=== PATIENT | female | born 1955 | race Caucasian/White ===

== ENCOUNTER 2016-04-01 13:11 | Emergency (ER) | payer OTHER ==
[2016-04-01 13:21] VITALS: BP 116/42
[2016-04-01 13:31] LABS: MANUAL DIFF NEEDED? NO
[2016-04-01 13:34] LABS: BASO% 0.8 % (0.0-0.8); EOS# 0.26 X1000 (0.0-0.7); EOS% 5.2 % (0.0-10.0); HEMATOCRIT 43.1 % (37.0-47.0); MCH 32.6 PG (27-31); MCHC 32.5 g/dL (33-37); MCV 100.2 FL (81-99); MONO# 0.46 X1000 (0.11-0.59); MONO% 9.2 % (1.7-9.3); NEUT% 54.8 % (42.2-75.2); PLT 273 X1000 (130-400)
[2016-04-01 13:37] LABS: URINE MICRO REVIEW NEEDED? NO; URINE SOURCE CLEAN CATCH
[2016-04-01 13:41] LABS: BILIRUBIN URINE NEGATIVE (NEGATIVE); BLOOD URINE NEGATIVE (NEGATIVE); COLOR STRAW; GLUCOSE URINE NEGATIVE (NEGATIVE); LEUKOCYTES URINE MODERATE (NEGATIVE); NITRITE URINE NEGATIVE (NEGATIVE); PROTEIN URINE NEGATIVE (NEGATIVE); SP GRAVITY URINE 1.005; TURBIDITY URINE CLEAR (CLEAR); UR EPITHELIAL CELLS <10 /HPF (<10); URINE BACTERIA NEGATIVE /HPF; URINE CULTURE NEEDED? YES; URINE RBC <10 /HPF (<10); URINE WBC <10 /HPF (<10); UROBILINOGEN URINE NORMAL (NORMAL)
[2016-04-01 13:54] LABS: AGAP 12; ALKALINE PHOSPHATASE 154 U/L (32-104); AMYLASE 66 U/L (20-200); BUN 10 mg/dL (8-22); CALCIUM 8.7 mg/dL (8.8-10.2); CHLORIDE 101 mmol/L (98-107); COSMO 278; GOT 18 U/L (10-30); GPT 18 U/L (10-36); LIPASE 40 U/L (13-60); POTASSIUM 4.2 mmol/L (3.5-5.1); SODIUM 139 mmol/L (136-145); TCO2 26 mmol/L (25-35); TOTAL BILIRUBIN 0.22 mg/dL (0.20-1.00); TOTAL PROTEIN 6.3 g/dL (6.3-8.3)
[2016-04-01] MEDS ORDERED: PHENERGAN IM ONE (15:31)
--- NOTE | 2016-04-01 15:40 | PROVIDER DOCUMENTATION ---
HPI-Abdominal Pain/GI Problem - General Chief Complaint: N/V/D Stated Complaint: N/V/D (POSS CDIFF) Time Seen by Provider: 04/01/16 15:21 Source: patient Allergies/Adverse Reactions: Patient Allergies Allergy/AdvReac Type Severity Reaction Status Date / Time codeine [Codeine] Allergy Severe RASH Verified 04/01/16 15:52 Penicillins Allergy Severe NAUSEA/VOMI Verified 04/01/16 15:52 TING diclofenac Allergy RASH Verified 04/01/16 15:52 fluconazole [From Diflucan] Allergy RASH Verified 04/01/16 15:52 tramadol Allergy RASH Verified 04/01/16 15:52 Home Medications: Home Medication List Medication Instructions Recorded Confirmed Last Taken Type Docusate Sodium [Colace] 200 mg PO HS PRN 12/25/11 04/01/16 2 Days Ago History Vilazodone Hydrochloride [Viibryd] 40 mg PO DAILY 12/25/11 04/01/16 04/01/16 07: 30 History Pantoprazole [Protonix] 40 mg PO DAILY@0700 04/16/12 04/01/16 04/01/16 07:30 History Ferrous Sulfate 325 mg PO TID 12/16/14 04/01/16 04/01/16 07:30 History Perphenazine 12 mg PO QHS 12/16/14 04/01/16 03/31/16 21:00 History Perphenazine [Trilafon] 8 mg PO QAM 12/16/14 04/01/16 04/01/16 07:00 History Phenytoin Sodium Extended 150 mg PO DAILY 12/16/14 04/01/16 04/01/16 07:00 History [Dilantin] Phenytoin Sodium Extended 200 mg PO QHS 12/16/14 04/01/16 03/31/16 21:00 History [Dilantin] Trazodone [Desyrel] 100 mg PO QHS 12/16/14 04/01/16 03/31/16 21:00 History Ondansetron Odt [Zofran 4 mg Odt] 4 mg PO Q6H PRN PRN #20 tablet 03/28/1604/01/16 11:00 Rx Dicyclomine [Bentyl] 10 mg PO 4XDAY #30 capsule 04/01/16 Unknown Rx Gabapentin 100 mg PO TID 04/01/16 04/01/16 04/01/16 07:30 History Lactobacillus Rhamnosus GG 1 each PO BID #30 capsule 04/01/16 Unknown Rx [Culturelle] Promethazine [Phenergan] 25 mg [place] Q6H PRN PRN #20 supp 04/01/16 Unknown Rx - History of Present Illness-ABD Nature of Presenting Problems: 61 y/o WF c/o abd. pain, N/V/D x 2 weeks. Pt states was diagnosed by her PCP with C. Diff 2 weeks ago and was seen at [facility] 3 days ago. Reports that vomiting started today. States diarrhea started last night. Reports RLQ pain x 2 weeks. No new sxs reported. Zofran ODT did not help her vomiting. Review of Systems - Adult - REVIEW OF SYSTEMS - ADULT Constitutional: reports: no symptoms reported. denies: chills, fever Eyes: reports: no symptoms reported. denies: blurred vision, double vision Ears, Nose, Mouth & Throat: reports: no symptoms reported. denies: ear pain, nose pain Cardiovascular: reports: no symptoms reported. denies: chest pain, palpitations Respiratory: reports: no symptoms reported. denies: dyspnea on exertion, shortness of breath Gastrointestinal: reports: see HPI, abdominal pain, diarrhea, nausea, vomiting. denies: constipation, rectal bleeding Genitourinary: reports: no symptoms reported. denies: dysuria, frequency Musculoskeletal: reports: no symptoms reported. denies: joint pain, joint swelling Integumentary: reports: no symptoms reported. denies: nail changes, rash Neurological: reports: no symptoms reported. denies: numbness, paresthesia Psychiatric: reports: no symptoms reported Endocrine: reports: no symptoms reported. denies: cold intolerance, heat intolerance Hematologic/Lymphatic: reports: no symptoms reported. denies: easy bruising, prolonged bleeding Allergic/Immunologic: reports: no symptoms reported All Other Systems: Reviewed and Negative Past History - Adult - PAST MEDICAL HISTORY-ADULT Review of Records: reports: Nursing Assessment Review, Medications Reviewed Major Childhood Illnesses: reports: denies history Cardiovascular: reports: HTN Respiratory: reports: denies history Gastrointestinal: reports: GERD Obstetrical/Gynecological: reports: denies history Genitourinary: reports: denies history Musculoskeletal: reports: denies history Neurological: reports: Seizures/Epilepsy Endocrine/Immune: reports: Diabetes Other Conditions: reports: denies history - PRIOR SURGERIES/PROCEDURES Surgical/Procedure History: reports: hysterectomy - FAMILY HISTORY Family History: reviewed, not pertinent - SOCIAL HISTORY Smoking: quit greater than 1 year Living Situation: family Physical Exam-General - PHYSICAL EXAM-ADULT Initial Vital Signs Reviewed: Yes - CONSTITUTIONAL General Appearance: alert, mild distress - EYES Eyes: pink conjunctivae - HEAD, EARS, NOSE, MOUTH & THROAT HENMT: normocephalic/atraumatic, moist mucous membranes - NECK Neck: normal inspection - RESPIRATORY Respiratory: lungs clear, normal breath sounds. negative: crackles, rales, rhonchi, stridor, wheezing - CARDIOVASCULAR Cardiovascular: regular rate, rhythm. negative: bradycardia, tachycardia - GASTROINTESTINAL (ABDOMEN) Abdominal Exam: normal bowel sounds, soft, tenderness (generalized). negative: distended, guarding, rigid, rebound, McBurney's point tenderness, Gomez's sign - MUSCULOSKELETAL Back Exam: no CVA tenderness Extremity: normal gait - SKIN Integumentary: normal color, normal turgor, warm/dry - NEUROLOGIC Neurologic: negative: aphasia - PSYCHIATRIC Psych/Mental Status: normal mood/affect, normal thought content, normal thought process, oriented x 3 Progress - XRAY 1 XRAY Study: Chest, Abdomen Impression: See EMR Report (nonspecific abdomen. lingular atelectasis. -per Dr. Maguire) Departure - Departure Time of Disposition Order: 16:05 DIAGNOSIS: Atelectasis Urinary tract infection Qualifiers: Urinary tract infection type: acute cystitis Hematuria presence: without hematuria Qualified Code(s): N30.00 - Acute cystitis without hematuria Vomiting Qualifiers: Vomiting type: unspecified Vomiting Intractability: non-intractable Nausea presence: unspecified Qualified Code(s): R11.10 - Vomiting, unspecified Disposition: HOME 01 Certified Medical Emergency: Emergent Condition: Stable Additional Instructions: Follow up with specialist for further management. Take medications as directed. Drink plenty of water. ED Follow Up Instructions: You have been treated by a care provider in the Emergency Department. These instructions are being provided to you so you can have an understanding of how to care for yourself upon discharge. Upon discharge from the Emergency Department, you are responsible for making arrangements for follow-up care by a physician of your choice. Take all prescribed medications as directed. Return to the Emergency Department immediately for any new or worsening symptoms. You may call the Physician Referral phone number at [phone] to obtain a list of Physicians who are taking new patients. Prescriptions: Dicyclomine [Bentyl] 10 mg PO 4XDAY #30 capsule Lactobacillus Rhamnosus GG [Culturelle] 1 each PO BID #30 capsule Promethazine [Phenergan] 25 mg AZ Q6H PRN PRN #20 supp PRN Reason: Nausea Referrals: Adele Frye [Primary Care Provider] - Roshan Matta MD [STAFF PHYSICIAN] - Attestation - Physician/ BHAVNA Attestation Patient care was provided by Advanced Practice Provider:: Yes Advanced Practice Provider:: Frida Conte Advanced Practice Provider documentation review:: The Mid-level provider documentation, treatment plan and medical decision making was reviewed by the physician who agrees with all treatment and medical decision making by the P.
--- NOTE | 2016-04-01 15:56 | Diag Imaging Result Document ---
PROCEDURE NAME: FLAT/UPRIGHT ABD/1 VIEW CHEST - 04/01/2016 FLAT AND UPRIGHT ABDOMEN: FINDINGS: There is no evidence of bowel obstruction, organomegaly, or mass. Stomach is not distended. There are surgical clips in the right upper quadrant. There is less stool in the colon than on 04/18/2012. IMPRESSION: Nonspecific abdomen. PA CHEST: FINDINGS: There is atelectasis in the lingula, which was not present on 03/06/2012. The inspiration is otherwise less optimal than the previous study. IMPRESSION: Lingular atelectasis.
[2016-04-01] MEDS ORDERED: NORCO-7.5 PO ONE (16:11)
== END 2016-04-01 16:27 | disposition home or self-care (01) ==
LOC: ED 13:11
DX: J98.11 Atelectasis (principal); N30.00 Acute cystitis without hematuria; R11.2 Nausea with vomiting, unspecified; R10.84 Generalized abdominal pain; R19.7 Diarrhea, unspecified; I10 Essential (primary) hypertension; K21.9 Gastro-esophageal reflux disease without esophagitis; E11.9 Type 2 diabetes mellitus without complications; Z79.899 Other long term (current) drug therapy; R56.9 Unspecified convulsions; Z87.891 Personal history of nicotine dependence
CPT/HCPCS: 74022; 80053; 81001; 82150; 83690; 85025; 87088; J2550

== ENCOUNTER 2016-04-05 17:03 | Emergency (ER) | payer OTHER ==
--- NOTE | 2016-04-05 17:35 | PROVIDER DOCUMENTATION ---
HPI-Musculoskeletal Pain/Inj - GENERAL Source: patient - HX OF PRESENT ILLNESS-MUSKULOSKELTAL Quality of Pain: reports: aching Severity in ED: mild Onset/Duration: this morning Timing: still present, intermittent Modifying Factors: improves with: nothing Any recent injury?: Yes (fall) Locality of Occurance: Home Similar Symptoms Previously?: Yes Recently seen or treated by another doctor?: No - FALL INJURY Location of Pain/Injury: reports: lower extremity (R hip) Pain Radiation: reports: no radiation Reason for Fall: reports: tripped Symptoms prior to fall:: reports: none Loss of Consciousness: no loss of consciousness Injury Associated Symptoms: reports: denies symptoms - HIP/PELVIS PAIN/INJURY Hip Pain Location: reports: hip (R) Pain Radiation: reports: no radiation Context / Method of Injury: reports: fall Associated Symptoms: reports: weakness in legs/feet (R leg). denies: loss of bladder control, loss of bowel control, lower back pain, muscle spasms, numbness in legs/feet, sensory/motor loss, tingling in legs/feet <Rody Weber - Last Filed: 04/05/16 17:30> <Maia Diaz - Last Filed: 04/05/16 18:33> - GENERAL Chief Complaint: Hip Injury Stated Complaint: FALL Time Seen by Provider: 04/05/16 17:23 - HX OF PRESENT ILLNESS-MUSKULOSKELTAL Nature of Presenting Problem: Pt is 61 y/o F presents to the ED with R hip pain. Pt states tripped and fell and landed on R hip. Pt states taking an aspirin with no relief. Pt denies hitting her head. Pt denies LOC. Pt states falling this am at 0800. Pt states pain with walking. (Rody Weber) Review of Systems - Adult - REVIEW OF SYSTEMS - ADULT Constitutional: denies: chills, fever Eyes: denies: blurred vision, double vision Ears, Nose, Mouth & Throat: denies: ear pain, nose pain, throat pain Cardiovascular: denies: chest pain, heart murmur, irregular heart rate Respiratory: denies: cough, shortness of breath, wheezing Gastrointestinal: denies: abdominal pain, diarrhea, nausea, vomiting Genitourinary: denies: dysuria, hematuria Musculoskeletal: reports: other (R hip pain). denies: bone pain, joint pain, neck pain Integumentary: denies: hives, itching Neurological: denies: dizziness/vertigo, headache/migraines Psychiatric: reports: no symptoms reported Endocrine: reports: no symptoms reported Hematologic/Lymphatic: reports: no symptoms reported Allergic/Immunologic: reports: no symptoms reported All Other Systems: Reviewed and Negative <Jeanette Weberomi - Last Filed: 04/05/16 17:30> - REVIEW OF SYSTEMS - ADULT Constitutional: denies: chills, fever Musculoskeletal: reports: joint pain. denies: joint swelling <Maia Diaz Andree - Last Filed: 04/05/16 18:33> Past History - Adult - PAST MEDICAL HISTORY-ADULT Review of Records: reports: Nursing Assessment Review, Medications Reviewed, Social history reviewed & non-contributory. Major Childhood Illnesses: reports: denies history Cardiovascular: reports: HTN Respiratory: reports: denies history Gastrointestinal: reports: GERD Obstetrical/Gynecological: reports: denies history Genitourinary: reports: denies history Musculoskeletal: reports: arthritis Neurological: reports: Seizures/Epilepsy Psychiatric: reports: depression Endocrine/Immune: reports: Diabetes Diabetes Type: Type 2 Other Conditions: reports: denies history - PRIOR SURGERIES/PROCEDURES Surgical/Procedure History: reports: cholecystectomy, hysterectomy - IMMUNIZATION STATUS Childhood Immunizations: See Nurse Assessment Flu Vaccine: See Nurse Assessment - FAMILY HISTORY Family History: reviewed, not pertinent - SOCIAL HISTORY Smoking: denies Substance Use: denies Living Situation: family <Rody Weber - Last Filed: 04/05/16 17:30> Physical Exam-Injury Related - Physical Exam-Injury Related Initial Vital Signs Reviewed: Yes General Appearance: appears well, alert, no apparent distress Eyes: PERRL/EOMI, pink conjunctivae, fundi clear, no AV nicking Head, Ears, Nose, Mouth & Throat: normocephalic/atraumatic, moist mucous membranes, normal ENT inspection, TMs normal, pharynx normal Neck: non-tender, full range of motion, supple, normal inspection Respiratory: chest non-tender, lungs clear, normal breath sounds, no pleuratic chest pain, no respiratory distress, no accessory muscle use Cardiovascular: normal peripheral pulses, regular rate, rhythm, no edema, no gallop, no JVD, no murmur Peripheral Pulses: radial (R): 2+, radial (L): 2+, dorsalis-pedis (R): 2+, dorsalis-pedis (L): 2+ Abdominal Exam: normal bowel sounds, non tender, soft, no organomegaly, no pulsatile mass Lymphatic: no adenopathy Back Exam: normal inspection, no CVA tenderness, no vertebral tenderness Extremity: normal range of motion, no pedal edema, no calf tenderness, tenderness (R hip) Integumentary: normal color, warm/dry Neurologic: intermediate project manager II-XII nml as tested, grossly normal, no motor/sensory deficits Psych/Mental Status: normal mood/affect, normal thought content, normal thought process, oriented x 3 <Rody Weber - Last Filed: 04/05/16 17:30> - Physical Exam-Injury Related Initial Vital Signs Reviewed: Yes General Appearance: appears well, alert, no apparent distress Eyes: PERRL/EOMI, pink conjunctivae Head, Ears, Nose, Mouth & Throat: normocephalic/atraumatic, moist mucous membranes, normal ENT inspection, TMs normal, pharynx normal Neck: non-tender, full range of motion, supple Respiratory: lungs clear, normal breath sounds Cardiovascular: normal peripheral pulses, regular rate, rhythm Peripheral Pulses: dorsalis-pedis (L): 2+ Abdominal Exam: non tender, soft Back Exam: normal inspection, no CVA tenderness, no vertebral tenderness Extremity: normal range of motion, normal inspection, normal capillary refill, tenderness (right bursa). negative: no pedal edema, deformity, erythema, swelling Integumentary: normal color, warm/dry. negative: ecchymosis, erythema, swelling <Maia Diaz - Last Filed: 04/05/16 18:33> Progress <Rody Weber - Last Filed: 04/05/16 17:30> - XRAY 1 XRAY: Left XRAY Study: Hip Impression: Normal XRAY Interpretation: neg <Maia Diaz - Last Filed: 04/05/16 18:33> - PLAN OF CARE/RESULTS Progress/Plan/Lab Results: Orders Category Date Time Status XRAY PELVIS W/HIP 2-3VW RT [RAD] Stat Exams 04/05/16 17:31 Ordered Vital Signs - 24 hr 04/05/16 17:14 Temperature 97 F L Pulse Rate 82 Respiratory 20 Rate Blood Pressure 123/74 O2 Sat by Pulse 93 L Oximetry (Rody Weber) Discussed care, diagnosis and need for follow-up, patient verbalized understanding Orders Category Date Time Status XRAY PELVIS W/HIP 2-3VW RT [RAD] Stat Exams 04/05/16 17:31 Taken Dexamethasone [Decadron] Med 04/05/16 18:27 Discontinued 10 mg IM NOW ONE Dexamethasone [Decadron] Med 04/05/16 18:24 Discontinued 4 mg IM NOW ONE Last Vital Signs Temp 97 F L 04/05/16 17:14 Pulse 82 04/05/16 17:14 Resp 20 04/05/16 17:14 BP 123/74 04/05/16 17:14 Pulse Ox 93 L 04/05/16 17:14 Allergies codeine [Codeine] Allergy (Severe, Verified 04/05/16 17:18) RASH Penicillins Allergy (Severe, Verified 04/05/16 17:18) NAUSEA/VOMITING diclofenac Allergy (Verified 04/05/16 17:18) RASH fluconazole [From Diflucan] Allergy (Verified 04/05/16 17:18) RASH tramadol Allergy (Verified 04/05/16 17:18) RASH Orders 04/05/16 17:31 XRAY PELVIS W/HIP 2-3VW RT [RAD] Stat Vital Signs - 24 hr 04/05/16 17:14 Temperature 97 F L Pulse Rate 82 Respiratory 20 Rate Blood Pressure 123/74 O2 Sat by Pulse 93 L Oximetry (Maia Diaz) Departure <Rody Weber - Last Filed: 04/05/16 17:30> - Departure Time of Disposition Order: 18:24 Certified Medical Emergency: Emergent <Maia Diaz - Last Filed: 04/05/16 18:33> - Departure DIAGNOSIS: Contusion of right hip Qualifiers: Encounter type: initial encounter Qualified Code(s): S70.01XA - Contusion of right hip, initial encounter Disposition: HOME 01 Condition: Stable Additional Instructions: ED Follow Up Instructions: You have been treated by a care provider in the Emergency Department. These instructions are being provided to you so you can have an understanding of how to care for yourself upon discharge. Upon discharge from the Emergency Department, you are responsible for making arrangements for follow-up care by a physician of your choice. Take all prescribed medications as directed. Return to the Emergency Department immediately for any new or worsening symptoms. You may call the Physician Referral phone number at [phone] to obtain a list of Physicians who are taking new patients. Prescriptions: Hydrocodone/APAP 7.5 mg/325 mg [Sultan-7.5] 1 each PO Q6H PRN PRN #8 tablet PRN Reason: Pain Methocarbamol [Robaxin-750] 750 mg PO TID #30 tablet Referrals: Adele Frye [Primary Care Provider] - Attestation - Scribe Verification/Attestation Scribe:: Rody Weber Acting as Scribe for:: Maia Diaz Scribe documention review:: This chart was documented by a scribe and accurately reflects the service the provider performed and the decisions made by the provider. <Rody Weber - Last Filed: 04/05/16 17:30> Physician Attestation
[2016-04-05] MEDS ORDERED: DECADRON IM ONE ×2 (18:24→18:27)
[2016-04-05] MEDS ORDERED: NORCO-5 PO ONE (18:36)
[2016-04-05 18:52] VITALS: BP 124/80
--- NOTE | 2016-04-05 20:07 | Diag Imaging Result Document ---
PROCEDURE NAME: XRAY PELVIS W/HIP 2-3VW RT - 04/05/2016 PELVIS AND 2 VIEWS OF THE RIGHT HIP: COMPARISON: CT, 03/28/2016. FINDINGS: Bones are intact and normally aligned. Joint spaces and soft tissues are clear. IMPRESSION: Negative exam.
== END 2016-04-05 18:52 | disposition home or self-care (01) ==
LOC: P.ED 17:03
DX: S70.01XA Contusion of right hip, initial encounter (principal); M25.551 Pain in right hip; I10 Essential (primary) hypertension; K21.9 Gastro-esophageal reflux disease without esophagitis; M19.90 Unspecified osteoarthritis, unspecified site; F32.9 Major depressive disorder, single episode, unspecified; E13.9 Other specified diabetes mellitus without complications; W01.0XXA Fall on same level from slipping, tripping and stumbling without subsequent striking against object, initial encounter; Z79.899 Other long term (current) drug therapy
CPT/HCPCS: 96372

== ENCOUNTER 2016-04-15 11:21 | Emergency (ER) | payer OTHER ==
[2016-04-15] MEDS ORDERED: FLEXERIL PO ONE (12:56)
[2016-04-15] MEDS ORDERED: NORCO-7.5 PO ONE (12:56)
--- NOTE | 2016-04-15 13:51 | PROVIDER DOCUMENTATION ---
HPI-Musculoskeletal Pain/Inj - GENERAL Chief Complaint: Extremity Pain Stated Complaint: EXTREMITY PAIN Time Seen by Provider: 04/15/16 12:25 Source: patient, family - HX OF PRESENT ILLNESS-MUSKULOSKELTAL Nature of Presenting Problem: 61 year old WF presents with c/o right posterior upper leg pain. onset last night while laying in bed, pt reports it kept her awake all night. pt denies taking any otc meds for pain. pt reports a history of PE and is concerned about a blood clot. denies trauma, injury, infection. Review of Systems - Adult - REVIEW OF SYSTEMS - ADULT Constitutional: reports: no symptoms reported. denies: chills, fever, fatique Eyes: reports: no symptoms reported. denies: discharge, blurred vision, double vision Ears, Nose, Mouth & Throat: reports: no symptoms reported. denies: ear discharge, ear pain, nose pain, loose teeth, throat pain, throat swelling Cardiovascular: reports: no symptoms reported Respiratory: reports: no symptoms reported. denies: chronic cough, cough, shortness of breath, wheezing Gastrointestinal: reports: no symptoms reported. denies: abdominal pain, diarrhea, nausea, vomiting Genitourinary: reports: no symptoms reported. denies: dysuria, hematuria, urgency Musculoskeletal: reports: see HPI, muscle aches (right posterior thigh). denies : bone pain, back pain, frequent leg cramps, joint pain, joint swelling, muscle weakness, neck pain Integumentary: reports: no symptoms reported. denies: hives, itching, rash, skin sores/ulcer Neurological: reports: no symptoms reported. denies: ataxia, dizziness/vertigo , headache/migraines, numbness, paresthesia Psychiatric: reports: no symptoms reported Endocrine: reports: no symptoms reported Hematologic/Lymphatic: reports: see HPI, blood clots (PE) Allergic/Immunologic: reports: no symptoms reported All Other Systems: Reviewed and Negative Past History - Adult - PAST MEDICAL HISTORY-ADULT Review of Records: reports: Old Records Reviewed, Nursing Assessment Review, Medications Reviewed, Social history reviewed & non-contributory. Major Childhood Illnesses: reports: denies history Cardiovascular: reports: HTN Respiratory: reports: denies history Gastrointestinal: reports: GERD Obstetrical/Gynecological: reports: denies history Genitourinary: reports: denies history Musculoskeletal: reports: arthritis Neurological: reports: Seizures/Epilepsy Psychiatric: reports: depression Endocrine/Immune: reports: Diabetes Other Conditions: reports: denies history - PRIOR SURGERIES/PROCEDURES Surgical/Procedure History: reports: cholecystectomy, hysterectomy - IMMUNIZATION STATUS Childhood Immunizations: See Nurse Assessment Flu Vaccine: See Nurse Assessment - FAMILY HISTORY Family History: reviewed, not pertinent - SOCIAL HISTORY Smoking: quit greater than 1 year Substance Use: none/never Alcohol Use Frequency: never Physical Exam-Injury Related - Physical Exam-Injury Related Initial Vital Signs Reviewed: Yes General Appearance: appears well, alert, no apparent distress. negative: mild distress, moderate distress, severe distress Eyes: pink conjunctivae Head, Ears, Nose, Mouth & Throat: normocephalic/atraumatic, moist mucous membranes, normal ENT inspection Neck: non-tender, full range of motion, supple, normal inspection. negative: C- spine tenderness, decresed ROM, pain on movement, tender lateral, tender midline , vertebral point tenderness Respiratory: chest non-tender, lungs clear, normal breath sounds, no pleuratic chest pain, no respiratory distress, no accessory muscle use Cardiovascular: normal peripheral pulses, regular rate, rhythm, no edema, no gallop, no JVD, no murmur Chest/Breast: no tenderness Peripheral Pulses: radial (R): 3+, radial (L): 3+, dorsalis-pedis (R): 3+, dorsalis-pedis (L): 3+ Abdominal Exam: normal bowel sounds, non tender, soft Female Genitalia/Pelvic Exam: deferred Rectal Exam: deferred Hemoccult Exam: deferred Lymphatic: no adenopathy Back Exam: normal inspection, no CVA tenderness, no vertebral tenderness. negative: CVA tenderness, decreased range of motion, swelling, vertebral tenderness Extremity: normal inspection, no pedal edema, no calf tenderness, normal capillary refill, pelvis stable, tenderness (right mid gastrocnemius tenderness with palpatation. no swelling, erythema, s/s or injury identified.). negative: normal range of motion, non-tender, normal gait (pt has been limping since pain initiation), abnormal NV exam, calf tenderness, deformity, erythema, inflammation, joint effusion, pulse deficit, pedal edema, slow capillary refill , swelling Integumentary: normal color, warm/dry Neurologic: grossly normal, no motor/sensory deficits. negative: focal weakness , motor weakness, sensory deficit Psych/Mental Status: normal mood/affect, normal thought content, normal thought process, oriented x 3 - Glascow Coma Score Best Eye Response ([place]): (4) open spontaneously Best Verbal Response ([place]): (5) oriented Best Motor Response ([place]): (6) obeys commands Lynda Total: 15 Progress - PLAN OF CARE/RESULTS Progress/Plan/Lab Results: Laboratory Tests 04/15/16 11:50 D-Dimer 0.40 Orders Category Date Time Status D-DIMER PL [COAG] Stat Lab 04/15/16 11:50 Completed Cyclobenzaprine [Flexeril] Med 04/15/16 12:56 Discontinued 10 mg PO NOW ONE Hydrocodone/APAP 7.5 mg/325 mg [[place]-7.5] Med 04/15/16 12:56 Discontinued 1 each PO NOW ONE - REASSESSMENT Reassessment #1 Time Reassessed: 13:46 Status: improving (pt reports pain resolved, up and ambulatory around room.) Departure - Departure Time of Disposition Order: 13:48 DIAGNOSIS: Strain of right gastrocnemius muscle Qualifiers: Encounter type: initial encounter Qualified Code(s): S86.111A - Strain of other muscle(s) and tendon(s) of posterior muscle group at lower leg level, right leg, initial encounter Disposition: HOME 01 Certified Medical Emergency: Emergent Condition: Stable Additional Instructions: Follow up with your primary care doctor as needed. ED Follow Up Instructions: You have been treated by a care provider in the Emergency Department. These instructions are being provided to you so you can have an understanding of how to care for yourself upon discharge. Upon discharge from the Emergency Department, you are responsible for making arrangements for follow-up care by a physician of your choice. Take all prescribed medications as directed. Return to the Emergency Department immediately for any new or worsening symptoms. You may call the Physician Referral phone number at [phone] to obtain a list of Physicians who are taking new patients. Prescriptions: Cyclobenzaprine [Flexeril] 10 mg PO TID #7 tablet Hydrocodone/APAP 5 mg/325 mg [[place]-5] 1 each PO Q6H PRN PRN #7 tablet PRN Reason: right leg pain Referrals: Adele Frye [Primary Care Provider] - Forms: Return to School/Parent Work Instructions: Acetaminophen; Hydrocodone tablets or capsules, Cyclobenzaprine tablets, Muscle Strain, [id number] Attestation - Physician/ BHAVNA Attestation Patient care was provided by Advanced Practice Provider:: Yes Advanced Practice Provider:: Daina Bentley Advanced Practice Provider documentation review:: The Mid-level provider documentation, treatment plan and medical decision making was reviewed by the physician who agrees with all treatment and medical decision making by the MLP.
[2016-04-15 13:57] VITALS: BP 124/80
== END 2016-04-15 14:03 | disposition home or self-care (01) ==
LOC: P.ED 11:21
DX: S86.111A Strain of other muscle(s) and tendon(s) of posterior muscle group at lower leg level, right leg, initial encounter (principal); M79.651 Pain in right thigh; Z86.711 Personal history of pulmonary embolism; I10 Essential (primary) hypertension; K21.9 Gastro-esophageal reflux disease without esophagitis; M19.90 Unspecified osteoarthritis, unspecified site; R56.9 Unspecified convulsions; E11.9 Type 2 diabetes mellitus without complications; Z79.899 Other long term (current) drug therapy; F32.9 Major depressive disorder, single episode, unspecified; Z87.891 Personal history of nicotine dependence
CPT/HCPCS: 85379; 99283